=== PATIENT | male | born 1980 | race Caucasian/White ===

== ENCOUNTER 2017-03-23 17:29 | Emergency (ER) | payer SELFPAY ==
[2017-03-23 18:09] VITALS: TEMP 97.9
[2017-03-23 18:39] VITALS: O2SAT 97
--- NOTE | 2017-03-23 19:15 | EDPHY ---
H & P Stated Complaint: LOW BACK PAIN AFTER DOING CROSSFIT 2 DAYS AGO Time Seen by Provider: 03/23/17 19:12 HPI/ROS: CHIEF COMPLAINT: Low back pain radiating to his quadriceps HISTORY OF PRESENT ILLNESS: The patient is a 36 y/o male complaining of lower back pain that radiates to his quadriceps, onset 2 days ago. Two days ago he was doing an overhead press at the gym when he felt mild pain in his back. Today the pain worsened; with the worst pain in his low back and buttock with mild burning in his mid quadriceps. He tried sitting down at home and missed the couch ending up on the floor; he stayed there until his girlfriend came home and brought him to the ED. He states he is unable to walk due to the pain.The pain is a 4/10 while lying down but a 10/10 while standing. He denies taking pain medication. Denies similar injury, numbness, weakness, urinary complaints or other pertinent symptoms. REVIEW OF SYSTEMS: A comprehensive 10 point review of systems is otherwise negative aside from elements mentioned in the history of present illness. PMH: Denies SOCIAL HISTORY: Girlfriend at bedside, non-smoker, does Cross[employer] PHYSICAL EXAM: Gen: Awake, Alert, No Distress HEENT: Nose: no rhinorrhea Eyes: PERRLA, EOMI Mouth: Moist mucosa Neck: Supple, no JVD Chest: nontender, lungs clear to auscultation Heart: S1, S2 normal, no murmur Abd: Soft, non-tender, no guarding Back: no CVA tenderness, no midline tenderness Ext: no edema, non-tender Skin: no rash Neuro: CN II-XII intact, Sensation grossly intact, Strength 5/5 in bilateral upper and lower extremities - Personal History Current Tetanus Diphtheria and Acellular Pertussis (TDAP): Yes Tetanus Vaccine Date: < 10 YEARS - Medical/Surgical History Hx Asthma: No Hx Chronic Respiratory Disease: No Hx Diabetes: No Hx Cardiac Disease: No Hx Renal Disease: No Hx Cirrhosis: No Hx Alcoholism: No Hx HIV/AIDS: No Hx Splenectomy or Spleen Trauma: No Other PMH: DENIES - Social History Smoking Status: Never smoked Constitutional: Initial Vital Signs Temperature (C) 36.6 C 03/23/17 18:08 Heart Rate 65 03/23/17 18:08 Respiratory Rate 16 03/23/17 18:08 Blood Pressure 135/70 H 03/23/17 18:08 O2 Sat (%) 97 03/23/17 18:08 O2 Delivery Mode Room Air Medical Decision Making ED Course/Re-evaluation: The patient is a 36 y/o male presenting with worsening low back pain that radiates into his buttock and quadriceps, onset 2 days ago. His physical exam is normal. 15mg IV Toradol administered. 2014: Patients nurse reports that he is still in pain after the Toradol. 5mg IV Valium administered. 2107: Reassessed patient he is unable to stand due to the pain. 2123: Reassessed patient, he is able to stand. I discussed low back exercises and pain management. Return precautions provided; patient is comfortable with this plan. Patient has no numbness, no weakness. He is able to ambulate after analgesia. He has normal reflexes. Toes downgoing. No midline bony tenderness. No red flags for acute spinal cord injury. No findings suggestive of cauda equina syndrome. Pain is improved with analgesia. He will follow up as an outpatient. - Data Points Medications Given: Discontinued Medications Hydrocodone Bitart/Acetaminophen ([place] 5/325mg Prepack#6) 1 btl TAKEHOME EDNOW ONE Stop: 03/23/17 21:29 Last Admin: 03/23/17 21:54 Dose: 1 btl Diazepam (Valium Injection) 5 mg IVP EDNOW ONE Stop: 03/23/17 20:14 Last Admin: 03/23/17 20:17 Dose: 5 mg Fentanyl (Sublimaze) 50 mcg IVP EDNOW ONE Stop: 03/23/17 21:11 Last Admin: 03/23/17 21:12 Dose: 50 mcg Ketorolac Tromethamine (Toradol) 15 mg IVP EDNOW ONE Stop: 03/23/17 19:41 Last Admin: 03/23/17 19:42 Dose: 15 mg Departure - Departure Disposition: Home, Routine, Self-Care Clinical Impression: Low back pain Qualifiers: Chronicity: acute Back pain laterality: midline Sciatica presence: without sciatica Qualified Code(s): M54.5 - Low back pain Condition: Good Instructions: Hydrocodone/Acetaminophen (By mouth), Back Pain (ED), Lower Back Exercises (ED) Additional Instructions: 1. Take 600mg Ibuprofen 3 times a day. Do not take any Ibuprofen tonight. 2. Ice for the first 2-3 days. 15 minutes for every hour, every 3-4 hours. 3. After 2-3 days alternate heat with ice. 4. Take [place] as prescribed. 5. Do not do strenuous exercise until you feel better. It will take several weeks until you feel back to normal. Work into your exercises slowly. 6. Follow up with your primary care provider within the next week for unimproved symptoms. 7. Return to the ED if you experience weakness, numbness, fever or severe worsening of your symptoms. Referrals: RACHEL MAYORGA [Other] - As per Instructions Report Scribed for: Claude Martinez Report Scribed by: Ebony Singh Date of Report: 03/23/17 Time of Report: 19:15
[2017-03-23] MEDS ORDERED: KETOROLAC 15 MG/1 ML SDV IVP ONE (19:40)
[2017-03-23] MEDS ORDERED: DIAZEPAM 10 MG/2 ML SYR IVP ONE (20:13)
[2017-03-23] MEDS ORDERED: fentaNYL 100 MCG/2 ML INJ IVP ONE (21:10)
[2017-03-23] MEDS ORDERED: fentaNYL 100 MCG/2 ML INJ ONE (21:11)
[2017-03-23] MEDS ORDERED: HYDROCOD/APAP 5/325 PREPACK#6 BTL TAKEHOME ONE (21:28)
[2017-03-23 21:55] VITALS: BP 150/90; PULSE 72; RESP 14
== END 2017-03-23 21:54 | disposition home or self-care (01) ==
DX: M54.5 Low back pain (principal)
CPT/HCPCS: 96374; J1885; J3010